=== PATIENT | female | born 1980 | race African-American/Black ===

== ENCOUNTER 2017-01-25 00:15 | Emergency (ER) | payer OTHER ==
[~2017-01-25] VITALS: Ht 167.6 cm; Wt 63.5 kg
[~2017-01-25 00:15] MED LIST: ACETAMINOPHEN-1 EAC1; ACETAMINOPHEN-1 EAC1 PO; ACETAMINOPHEN325 M1 PO; ACETAMINOPHEN650 M5 PO; ADULT LOW DOSE81 MG PO; ALEVE220 MG PO; AUGMENTIN 875875 M1 PO; AZITHROMYCIN 2250 MG PO; CARISOPRODOL 3350 MG PO; COLACE 100 MG100 MG PO; COLACE100 MG PO; CYCLOBENZAPRINE10 MG PO; DEEP SEA NASAL44 M1 NASAL; DESYREL PO; DESYREL150 MG PO; DIFLUCAN150 MG PO; DIPHENHIST50 MG PO; DIPHENHYDRAMINE25 M3 PO; ENEMA133 ML PO; FLEXERIL PO; FOLIC ACID0.4 MG PO; FOLIC ACID1 MG; FOLIC ACID1 MG PO; IBUPROFEN 600600 M1 PO; LEVAQUIN PO; MACROBID 100 M100 M1 PO; MEDROLDOSEPACK PO; MINERAL OIL HEAV1 ML PO; MIRALAX255 GM PO; MORPHINE SULFAT15 M3 PO; MORPHINE SULFAT30 M1 PO; MOTRIN 600 MG PO; MS CONTIN 100100 MG PO; MULTIVITAMINS PO; NEURONTIN 300300 M1 PO; NORCO 5-325 TA1 EACH PO; OXYCODONE PO; OXYCONTIN PO; PEPTO-BISMOL262 M1 PO; PERCOCET 5-3251 EACH PO; PREDNISOLONE ACETATE 1% OP; PRENATAL MULTI1 EAC2 PO; PROMETHAZINE12.5 M1 PO; PYRIDOXINE HCL100 MG PO; RESTASIS1 EACH OP; SENNA-LAX8.6 MG PO; TRAZODONE 150150 M1 PO; TRINATE TABLET1 TAB PO; TYLENOL 3; TYLENOL325 MG PO; ZOFRAN 4 MG ORAL4 M1 DIS; [UNRECOGNIZED DRUG - CODE] PO
[2017-01-25 01:02] LABS: ABSOLUTE RETIC COUNT 0.3634 10^6/uL; HEMATOCRIT 20.7 % (37.0-47.0); HEMOGLOBIN 7.4 gm/dL (12.0-15.0); MCH 34.1 pg (26.0-34.0); MCHC 35.5 g/dL (28.0-37.0); MCV 96.2 fL (80.0-100.0); OBSERVED RETIC COUNT 16.85 % (0.6-2.6); PLATELET COUNT 435 thou/uL (150-400); RBC 2.16 mil/uL (4.20-5.00); RDW 20.9 % (10.5-14.5); WBC 9.7 thou/uL (4.0-11.0)
[2017-01-25 01:03] LABS: MANUAL DIFF YES
[2017-01-25 01:07] LABS: CALCIUM 8.4 mg/dL (8.5-10.1); CREATININE 0.6 mg/dL (0.6-1.0); POTASSIUM 3.6 mmol/L (3.5-5.1)
[2017-01-25 04:16] LABS: ABSOLUTE NEUTROPHILS 5.3 thou/uL (1.4-8.2); ANISOCYTOSIS 3+; MYELOCYTES 1 %; NUCLEATED RBCS 8 /100WBC; TOTAL CELL COUNT 100
[2017-01-25 04:17] LABS: HOWELL-JOLLY BODIES RARE; MACROCYTES 1+; POIKILOCYTOSIS 2+; POLYCHROMASIA 1+
[2017-01-25 04:18] LABS: LARGE PLATELETS OCCASIONAL
== END 2017-01-25 03:06 | disposition home or self-care (01) ==
LOC: ER 00:15
PROVIDERS: Emergency Medicine
DX: D57.00 Hb-SS disease with crisis, unspecified (principal); M54.9 Dorsalgia, unspecified; M79.605 Pain in left leg; M79.604 Pain in right leg; Z86.2 Personal history of diseases of the blood and blood-forming organs and certain disorders involving the immune mechanism; Z90.49 Acquired absence of other specified parts of digestive tract; G89.4 Chronic pain syndrome

== ENCOUNTER 2017-02-28 08:26 | Emergency (ER) | payer OTHER ==
[~2017-02-28] VITALS: Ht 167.6 cm; Wt 61.2 kg
== END 2017-02-28 10:48 | disposition home or self-care (01) ==
LOC: ER 08:26
DX: D57.1 Sickle-cell disease without crisis (principal); G89.4 Chronic pain syndrome; Z90.81 Acquired absence of spleen; Z45.2 Encounter for adjustment and management of vascular access device

== ENCOUNTER 2017-03-10 18:00 | Inpatient (IN) | payer OTHER ==
[~2017-03-10] VITALS: Ht 162.6 cm; Wt 62.7 kg
[2017-03-10 18:51] LABS: HEMATOCRIT 22.4 % (37.0-47.0); HEMOGLOBIN 7.9 gm/dL (12.0-15.0); MANUAL DIFF YES; MCH 35.4 pg (26.0-34.0); MCHC 35.2 g/dL (28.0-37.0); MCV 100.5 fL (80.0-100.0); PLATELET COUNT 487 thou/uL (150-400); RBC 2.23 mil/uL (4.20-5.00); RDW 24.5 % (10.5-14.5); WBC 11.7 thou/uL (4.0-11.0)
[2017-03-10 19:08] LABS: CALCIUM 8.4 mg/dL (8.5-10.1); CREATININE 0.6 mg/dL (0.6-1.0); POTASSIUM 3.7 mmol/L (3.5-5.1)
[2017-03-10 19:16] LABS: ABSOLUTE NEUTROPHILS 6.6 thou/uL (1.4-8.2); NUCLEATED RBCS 17 /100WBC; TOTAL CELL COUNT 100
[2017-03-10 19:17] LABS: ANISOCYTOSIS 4+; MICROCYTES 3+; POLYCHROMASIA 2+; TARGET CELLS 1+
[2017-03-10 19:18] LABS: OTHER MORPHOLOGY SICKLE CELLS
[2017-03-10 19:19] LABS: POIKILOCYTOSIS 4+
[2017-03-10 21:28] LABS: ABSOLUTE RETIC COUNT 0.5151 10^6/uL; OBSERVED RETIC COUNT 23.1 % (0.6-2.6)
[2017-03-10 22:00] VITALS: BP 147/90
[2017-03-10 23:00] VITALS: BP 126/44
[2017-03-10 23:44] LABS: CALCIUM 8.1 mg/dL (8.5-10.1); CREATININE 0.5 mg/dL (0.6-1.0); POTASSIUM 3.5 mmol/L (3.5-5.1)
[2017-03-11 00:51] VITALS: BP 111/61
[2017-03-11 03:35] VITALS: BP 127/60
[2017-03-11 05:23] LABS: WBC 10.2 thou/uL (4.0-11.0)
[2017-03-11 05:27] LABS: MCHC 35.1 g/dL (28.0-37.0); MCV 99.6 fL (80.0-100.0); RBC 1.99 mil/uL (4.20-5.00); RDW 23.8 % (10.5-14.5)
[2017-03-11 05:47] LABS: HEMATOCRIT 19.8 % (37.0-47.0)
[2017-03-11 07:50] VITALS: BP 133/86
[2017-03-11 15:45] VITALS: BP 112/82
[2017-03-11 20:00] VITALS: BP 127/66
[2017-03-12 03:42] VITALS: BP 101/48
[2017-03-12 03:58] LABS: ABSOLUTE NEUTROPHILS 6.3 thou/uL (1.4-8.2); BASOPHILS 0.5 % (0.0-2.0); EOSINOPHILS 3.9 % (0.0-3.0); HEMATOCRIT 21.4 % (37.0-47.0); HEMOGLOBIN 7.4 gm/dL (12.0-15.0); MCH 34.8 pg (26.0-34.0); MCHC 34.4 g/dL (28.0-37.0); MCV 101.1 fL (80.0-100.0); MONOCYTES 10.7 % (1.0-8.0); PLATELET COUNT 444 thou/uL (150-400); POLYS 59.9 % (36.0-66.0); RBC 2.11 mil/uL (4.20-5.00); RDW 23.1 % (10.5-14.5); WBC 11.5 thou/uL (4.0-11.0)
[2017-03-12 04:02] LABS: CALCIUM 8.5 mg/dL (8.5-10.1); CREATININE 0.6 mg/dL (0.6-1.0)
[2017-03-12 04:05] LABS: MANUAL DIFF NO
[2017-03-12 07:42] VITALS: BP 121/77
[2017-03-12 16:03] VITALS: BP 136/80
[2017-03-12 18:57] VITALS: BP 129/69
[2017-03-13 03:25] VITALS: BP 97/47
[2017-03-13 08:40] VITALS: BP 106/62
[2017-03-13 19:10] VITALS: BP 120/54
[2017-03-14 03:56] VITALS: BP 109/52
[2017-03-14 05:17] LABS: MCV 99.1 fL (80.0-100.0)
[2017-03-14 05:20] LABS: MCHC 34.3 g/dL (28.0-37.0); RBC 1.86 mil/uL (4.20-5.00); WBC 11.6 thou/uL (4.0-11.0)
[2017-03-14 05:31] LABS: HEMATOCRIT 18.4 % (37.0-47.0); HEMOGLOBIN 6.3 gm/dL (12.0-15.0)
[2017-03-14 05:42] LABS: ALBUMIN 3.5 g/dL (3.4-5.0); CALCIUM 8.6 mg/dL (8.5-10.1); CREATININE 0.5 mg/dL (0.6-1.0); TOTAL BILIRUBIN 4.7 mg/dL (<0.1-1.0); TOTAL PROTEIN 6.8 g/dL (6.4-8.2)
[2017-03-14 07:07] VITALS: BP 98/41
[2017-03-14 15:05] VITALS: BP 119/48
[2017-03-14 19:56] VITALS: BP 132/52
[2017-03-15 07:10] VITALS: BP 103/46
[2017-03-15 15:30] VITALS: BP 121/61
[2017-03-15 19:22] VITALS: BP 123/66
[2017-03-16 04:20] VITALS: BP 110/49
[2017-03-16 04:23] LABS: MCH 33.5 pg (26.0-34.0); MCHC 34.7 g/dL (28.0-37.0); MCV 96.4 fL (80.0-100.0); RBC 1.87 mil/uL (4.20-5.00); WBC 14.2 thou/uL (4.0-11.0)
[2017-03-16 04:32] LABS: HEMOGLOBIN 6.2 gm/dL (12.0-15.0)
[2017-03-16 07:05] VITALS: BP 106/45
[2017-03-16] MEDS ORDERED: OXYCODONE HCL 55 MG PO (10:48)
[2017-03-16 11:02] VITALS: BP 106/45
[2017-03-16 11:52] LABS: URINE BILIRUBIN NEGATIVE (Negative); URINE BLOOD NEGATIVE (Negative); URINE COLOR YELLOW; URINE GLUCOSE-RANDOM* NEGATIVE (Negative); URINE KETONES NEGATIVE (Negative); URINE NITRITE NEGATIVE (Negative); URINE PROTEIN (DIPSTICK) NEGATIVE (Negative)
== END 2017-03-16 14:50 | disposition home or self-care (01) | DRG 812 ==
LOC: ER 18:00 → EROBS 21:17 → 5S 21:17
PROVIDERS: Emergency Medicine; Family Medicine; Hospitalist; Nurse Practitioner Family
DX: D57.00 Hb-SS disease with crisis, unspecified (principal); D64.9 Anemia, unspecified; Z96.643 Presence of artificial hip joint, bilateral; G89.4 Chronic pain syndrome; E86.0 Dehydration; Z90.81 Acquired absence of spleen; Z90.49 Acquired absence of other specified parts of digestive tract; Z86.711 Personal history of pulmonary embolism; Z86.718 Personal history of other venous thrombosis and embolism
CPT/HCPCS: 10785

== ENCOUNTER 2017-04-07 17:01 | Emergency (ER) | payer OTHER ==
[~2017-04-07] VITALS: Ht 167.6 cm; Wt 61.2 kg
--- NOTE | ~2017-04-07 | EKG ---
[place] [address] [address] [facility] [place] [address] ELECTROCARDIOGRAM REPORT Name: EDILZIASTEVE LYNCH [facility]: [facility] [id number] Admission: 04/07/17 Attend Phys: Discharge: 04/07/17 Date of : 80 Report #: [id number] THIS REPORT FOR: //name// [facility] ED Test Date: 2017-04-07 Test Time: 17:48:54 Pat Name: ZIA SOLO Department: Room: Gender: F Assistant Customer Service Manager: [id number] : 1980 Requested By: Darling Mcgregor Order Number: [id number] MD: Jean Prescott Measurements Intervals [place] Rate: 83 P: 43 OR: 191 QRS: 55 QRSD: 90 T: 30 QT: 373 QTc: 439 Interpretive Statements Sinus rhythm Consider left ventricular hypertrophy Compared to ECG 11/21/2014 14:20:12 No significant changes Electronically Signed On 04-07-2017 23:06:43 CDT by Jean Prescott [email or web address] <ELECTRONICALLY SIGNED> By: Jean Prescott MD 04/07/17 [id number] 1748 Jean Prescott MD /SHIRLENE
[~2017-04-07 17:01] MED LIST changes: +OXYCODONE HCL 55 MG PO
[2017-04-07] MEDS ORDERED: MSL20MG/ML PO (18:23)
[2017-04-07] MEDS ORDERED: AMITRIPTYLINE H25 M3 PO (18:24)
[2017-04-07 18:35] LABS: ABSOLUTE NEUTROPHILS 7.2 thou/uL (1.4-8.2); BASOPHILS 0.4 % (0.0-2.0); EOSINOPHILS 0.8 % (0.0-3.0); HEMOGLOBIN 8.8 gm/dL (12.0-15.0); LYMPHOCYTES 14.9 % (24.0-44.0); MCH 35.7 pg (26.0-34.0); MCHC 35.1 g/dL (28.0-37.0); MCV 101.5 fL (80.0-100.0); MONOCYTES 9.3 % (1.0-8.0); PLATELET COUNT 520 thou/uL (150-400); POLYS 74.6 % (36.0-66.0); RBC 2.46 mil/uL (4.20-5.00); RDW 22.8 % (10.5-14.5); WBC 10.5 thou/uL (4.0-11.0)
[2017-04-07 18:36] LABS: MANUAL DIFF NO
[2017-04-07 18:43] LABS: ANION GAP 6 mmol/L (7-16); BUN 9 mg/dL (7-18); CALCIUM 9.1 mg/dL (8.5-10.1); CHLORIDE 105 mmol/L (98-107); CO2 29 mmol/L (21-32); CREATININE 0.6 mg/dL (0.6-1.0); GLUCOSE 104 mg/dL (74-106); POTASSIUM 4.2 mmol/L (3.5-5.1); SODIUM 140 mmol/L (136-145)
[2017-04-07 18:47] LABS: ABSOLUTE RETIC COUNT 0.4755 10^6/uL; OBSERVED RETIC COUNT 18.8 % (0.6-2.6)
[2017-04-07 18:49] LABS: ALBUMIN 4.1 g/dL (3.4-5.0); ALKALINE PHOSPHATASE 69 U/L (46-116); SGOT 26 U/L (15-37); SGPT 24 U/L (30-65); TOTAL BILIRUBIN 5.6 mg/dL (<0.1-1.0); TOTAL PROTEIN 8.2 g/dL (6.4-8.2); TROPONIN-I < 0.04 ng/mL (<0.04-0.07)
== END 2017-04-07 21:51 | disposition home or self-care (01) ==
LOC: ER 17:01
PROVIDERS: Nurse Practitioner Family
DX: D57.1 Sickle-cell disease without crisis (principal); G89.29 Other chronic pain; F10.99 Alcohol use, unspecified with unspecified alcohol-induced disorder; Z96.643 Presence of artificial hip joint, bilateral; Z90.49 Acquired absence of other specified parts of digestive tract

== ENCOUNTER 2017-05-05 19:10 | Emergency (ER) | payer OTHER ==
[~2017-05-05] VITALS: Ht 167.6 cm; Wt 65.8 kg
[~2017-05-05 19:10] MED LIST changes: +AMITRIPTYLINE H25 M3 PO; +MSL20MG/ML PO
[2017-05-05 21:48] LABS: URINE BILIRUBIN NEGATIVE (Negative); URINE BLOOD NEGATIVE (Negative); URINE COLOR YELLOW; URINE GLUCOSE-RANDOM* NEGATIVE (Negative); URINE KETONES NEGATIVE (Negative); URINE LEUKOCYTES-REFLEX NEGATIVE (Negative); URINE PROTEIN (DIPSTICK) 1+ (Negative); URINE UROBILINOGEN 0.2 E.U./dl (0.2-1.0)
[2017-05-05 21:55] LABS: SQUAMOUS >10 Many /LPF (0-3)
[2017-05-05 21:56] LABS: HYALINE CASTS 0-3 Few /LPF (None Seen); URINE RBC 0-2 Rare /HPF (0-2); URINE WBC-REFLEX 6-15 Few /HPF (0-5)
[2017-05-05 21:57] LABS: CRYSTALS None Seen /LPF (None Seen); YEAST-REFLEX Present (None Seen)
== END 2017-05-05 23:12 | disposition home or self-care (01) ==
LOC: ER 19:10
PROVIDERS: Emergency Medicine
DX: D57.00 Hb-SS disease with crisis, unspecified (principal); G89.29 Other chronic pain; Z96.641 Presence of right artificial hip joint; Z96.642 Presence of left artificial hip joint; Z90.49 Acquired absence of other specified parts of digestive tract

== ENCOUNTER 2017-05-13 21:24 | Emergency (ER) | payer OTHER ==
[~2017-05-13] VITALS: Ht 167.6 cm; Wt 63.5 kg
== END 2017-05-14 04:10 | disposition home or self-care (01) ==
LOC: ER 21:24
DX: D57.00 Hb-SS disease with crisis, unspecified (principal); Z96.643 Presence of artificial hip joint, bilateral; Z90.81 Acquired absence of spleen

== ENCOUNTER 2017-06-18 20:09 | Emergency (ER) | payer OTHER ==
[~2017-06-18] VITALS: Ht 167.6 cm; Wt 63.5 kg
[2017-06-18 21:44] LABS: HEMATOCRIT 22.1 % (37.0-47.0); HEMOGLOBIN 7.8 gm/dL (12.0-15.0); MCH 34.4 pg (26.0-34.0); MCHC 35.3 g/dL (28.0-37.0); MCV 97.7 fL (80.0-100.0); PLATELET COUNT 488 thou/uL (150-400); RBC 2.26 mil/uL (4.20-5.00); RDW 22.9 % (10.5-14.5); WBC 11.9 thou/uL (4.0-11.0)
[2017-06-18 21:45] LABS: MANUAL DIFF YES
[2017-06-18 21:59] LABS: CALCIUM 9.2 mg/dL (8.5-10.1); CREATININE 0.6 mg/dL (0.6-1.0); POTASSIUM 4.2 mmol/L (3.5-5.1)
[2017-06-18 22:12] LABS: ABSOLUTE NEUTROPHILS 9.2 thou/uL (1.4-8.2); NUCLEATED RBCS 4 /100WBC; TOTAL CELL COUNT 100
[2017-06-18 22:13] LABS: HOWELL-JOLLY BODIES OCCASIONAL; MACROCYTES 1+; POLYCHROMASIA OCCASIONAL; TARGET CELLS 1+
== END 2017-06-19 00:48 | disposition home or self-care (01) ==
LOC: ER 20:09
PROVIDERS: Physician Assistant
DX: D57.00 Hb-SS disease with crisis, unspecified (principal); Z96.643 Presence of artificial hip joint, bilateral; Z90.49 Acquired absence of other specified parts of digestive tract; G89.29 Other chronic pain; Z86.711 Personal history of pulmonary embolism; Z86.718 Personal history of other venous thrombosis and embolism

== ENCOUNTER 2017-07-10 16:23 | Emergency (ER) | payer OTHER ==
[~2017-07-10] VITALS: Ht 165.1 cm; Wt 56.7 kg
[2017-07-10 17:13] LABS: HEMATOCRIT 22.4 % (37.0-47.0); HEMOGLOBIN 7.8 gm/dL (12.0-15.0); MCH 33.5 pg (26.0-34.0); MCV 95.5 fL (80.0-100.0); PLATELET COUNT 420 thou/uL (150-400); RBC 2.34 mil/uL (4.20-5.00); RDW 19.6 % (10.5-14.5); WBC 15.5 thou/uL (4.0-11.0)
[2017-07-10 17:15] LABS: MANUAL DIFF YES
[2017-07-10 17:25] LABS: CALCIUM 8.8 mg/dL (8.5-10.1); CREATININE 0.8 mg/dL (0.6-1.0); POTASSIUM 3.4 mmol/L (3.5-5.1)
[2017-07-10 17:35] LABS: ABSOLUTE NEUTROPHILS 13.2 thou/uL (1.4-8.2); NUCLEATED RBCS 2 /100WBC; TOTAL CELL COUNT 100
[2017-07-10 17:36] LABS: ANISOCYTOSIS 3+; POLYCHROMASIA 2+
[2017-07-10 17:37] LABS: TARGET CELLS OCCASIONAL
== END 2017-07-10 20:53 | disposition home or self-care (01) ==
LOC: ER 16:23
PROVIDERS: Emergency Medicine
DX: D57.1 Sickle-cell disease without crisis (principal); G89.29 Other chronic pain; Z90.81 Acquired absence of spleen; Z96.643 Presence of artificial hip joint, bilateral

== ENCOUNTER 2017-11-11 00:15 | Emergency (ER) | payer OTHER ==
[~2017-11-11] VITALS: Ht 167.6 cm; Wt 63.5 kg
[2017-11-11 01:23] LABS: ABSOLUTE RETIC COUNT 0.3273 10^6/uL; OBSERVED RETIC COUNT 14.85 % (0.6-2.6)
[2017-11-11 01:28] LABS: CALCIUM 8.7 mg/dL (8.5-10.1); CREATININE 0.6 mg/dL (0.6-1.0); POTASSIUM 4.1 mmol/L (3.5-5.1)
[2017-11-11 01:32] LABS: HEMATOCRIT 21.3 % (37.0-47.0); HEMOGLOBIN 7.3 gm/dL (12.0-15.0); MCH 32.9 pg (26.0-34.0); MCHC 34.1 % (28.0-37.0); MCV 96.5 fL (80.0-100.0); PLATELET COUNT 453 thou/uL (150-400); RDW 21.5 % (10.5-14.5); WBC 10.6 thou/uL (4.0-11.0)
[2017-11-11 02:01] LABS: ABSOLUTE NEUTROPHILS 6.9 thou/uL (1.4-8.2); ANISOCYTOSIS 2+; HOWELL-JOLLY BODIES RARE; LARGE PLATELETS RARE; NUCLEATED RBCS 5 /100WBC; POIKILOCYTOSIS 2+; POLYCHROMASIA OCCASIONAL
[2017-11-11 03:40] VITALS: BP 131/75
== END 2017-11-11 02:45 | disposition home or self-care (01) ==
LOC: ER 00:15
PROVIDERS: Emergency Medicine
DX: D57.00 Hb-SS disease with crisis, unspecified (principal); Z96.643 Presence of artificial hip joint, bilateral

== ENCOUNTER 2018-02-22 20:28 | Emergency (ER) | payer OTHER ==
[~2018-02-22] VITALS: Ht 167.6 cm; Wt 63.5 kg
--- NOTE | ~2018-02-22 | EKG ---
[address] [place] [address] ELECTROCARDIOGRAM REPORT Name: ZIA SOLO CRIS [facility] [id number] Admission: 02/22/18 Attend Phys: Discharge: 02/23/18 Date of : 80 Report #: [id number] THIS REPORT FOR: //name// [facility] ED Test Date: 2018-02-22 Test Time: 21:26:49 Pat Name: ZIA SOLO Department: Room: Gender: F Kitchen Work Supervisor: ANGIE : 1980 Requested By: Mandy Rojo Order Number: [id number] MD: Terry Merrill Measurements Intervals [place] Rate: 90 P: 64 MD: 175 QRS: 69 QRSD: 98 T: 24 QT: 357 QTc: 437 Interpretive Statements Sinus rhythm Probable left ventricular hypertrophy Compared to ECG 07/23/2017 20:32:57 No significant changes Electronically Signed On 02-23-2018 8:11:36 CDT by Terry Merrill [email or web address] <ELECTRONICALLY SIGNED> By: Terry Merrill MD, [facility] 02/23/18 0811 2126 25 Terry Merrill MD, FACC /EPI
[2018-02-22 22:51] LABS: ABSOLUTE NEUTROPHILS 12.4 thou/uL (1.4-8.2); BASOPHILS 0.3 % (0.0-2.0); EOSINOPHILS 2.1 % (0.0-3.0); HEMATOCRIT 22.2 % (37.0-47.0); HEMOGLOBIN 7.7 gm/dL (12.0-15.0); LYMPHOCYTES 16.4 % (24.0-44.0); MCH 33.6 pg (26.0-34.0); MCHC 34.8 g/dL (28.0-37.0); MCV 96.7 fL (80.0-100.0); MONOCYTES 10.4 % (1.0-8.0); PLATELET COUNT 412 thou/uL (150-400); POLYS 70.8 % (36.0-66.0); RBC 2.29 mil/uL (4.20-5.00); RDW 22.5 % (10.5-14.5); WBC 17.5 thou/uL (4.0-11.0)
[2018-02-22 22:59] LABS: ABSOLUTE RETIC COUNT 0.3578 10^6/uL; OBSERVED RETIC COUNT 15.48 % (0.6-2.6)
[2018-02-22 23:25] LABS: URINE BILIRUBIN NEGATIVE (Negative); URINE BLOOD NEGATIVE (Negative); URINE CLARITY CLEAR; URINE COLOR YELLOW; URINE GLUCOSE-RANDOM* NEGATIVE (Negative); URINE KETONES NEGATIVE (Negative); URINE LEUKOCYTES-REFLEX NEGATIVE (Negative); URINE NITRITE-REFLEX NEGATIVE (Negative); URINE PROTEIN (DIPSTICK) NEGATIVE (Negative)
[2018-02-22 23:47] LABS: ANION GAP 6 mmol/L (7-16); BUN 12 mg/dL (7-18); CALCIUM 8.9 mg/dL (8.5-10.1); CHLORIDE 106 mmol/L (98-107); CO2 26 mmol/L (21-32); CREATININE 0.6 mg/dL (0.6-1.0); SODIUM 138 mmol/L (136-145)
[2018-02-22 23:51] LABS: ALBUMIN 3.8 g/dL (3.4-5.0); GLUCOSE 112 mg/dL (74-106); LIPASE 96 U/L (73-393); SGOT 25 U/L (15-37); SGPT 21 U/L (30-65)
[2018-02-23 00:04] LABS: TROPONIN-I < 0.04 ng/mL (<0.06)
[2018-02-23 00:06] LABS: TOTAL PROTEIN 7.7 g/dL (6.4-8.2)
[2018-02-23 00:17] LABS: ANISOCYTOSIS 3+; HYPOCHROMASIA 1+; POLYCHROMASIA 2+
== END 2018-02-23 02:00 | disposition home or self-care (01) ==
LOC: ER 20:28
PROVIDERS: Physician Assistant
DX: D57.1 Sickle-cell disease without crisis (principal); R10.84 Generalized abdominal pain

== ENCOUNTER 2019-01-29 14:02 | Emergency (ER) | payer OTHER ==
[~2019-01-29] VITALS: Ht 167.6 cm; Wt 63.5 kg
[2019-01-29 14:07] VITALS: BP 112/55
[2019-01-29 15:20] LABS: ABSOLUTE RETIC COUNT 0.4218 10^6/uL; HEMATOCRIT 20.7 % (37.0-47.0); HEMOGLOBIN 7.3 gm/dL (12.0-15.0); MCH 33.2 pg (26.0-34.0); MCHC 35.2 g/dL (28.0-37.0); MCV 94.2 fL (80.0-100.0); OBSERVED RETIC COUNT 19.16 % (0.6-2.6); PLATELET COUNT 466 thou/uL (150-400); RDW 24.1 % (10.5-14.5); WBC 14.8 thou/uL (4.0-11.0)
[2019-01-29 15:22] LABS: CALCIUM 8.7 mg/dL (8.5-10.1); CREATININE 0.8 mg/dL (0.6-1.0); POTASSIUM 4.1 mmol/L (3.5-5.1)
[2019-01-29 15:49] LABS: ABSOLUTE NEUTROPHILS 9.2 thou/uL (1.4-8.2); NUCLEATED RBCS 3 /100WBC
[2019-01-29 15:52] LABS: ANISOCYTOSIS 1+
[2019-01-29 15:53] LABS: MACROCYTES 1+
[2019-01-29 16:18] LABS: URINE BILIRUBIN NEGATIVE (Negative); URINE BLOOD 1+ (Negative); URINE COLOR YELLOW; URINE GLUCOSE-RANDOM* NEGATIVE (Negative); URINE KETONES NEGATIVE (Negative); URINE PROTEIN (DIPSTICK) NEGATIVE (Negative); URINE UROBILINOGEN 0.2 E.U./dl (0.2-1.0)
[2019-01-29 16:20] LABS: URINE CLARITY CLOUDY; URINE LEUKOCYTES-REFLEX 3+ (Negative); URINE NITRITE-REFLEX POSITIVE (Negative)
[2019-01-29 16:25] LABS: ALBUMIN 3.5 g/dL (3.4-5.0); DIRECT BILIRUBIN 0.2 mg/dL (<0.1-0.3); TOTAL BILIRUBIN 6.5 mg/dL (<0.1-1.0)
[2019-01-29 16:27] LABS: TOTAL PROTEIN 7.3 g/dL (6.4-8.2)
[2019-01-29 16:29] LABS: BACTERIA-REFLEX >30 Many /HPF (None Seen); CASTS None Seen /LPF (None Seen); CRYSTALS None Seen /LPF (None Seen); SQUAMOUS 0-3 Few /LPF (0-3); URINE RBC 3-10 Few /HPF (0-2); URINE WBC-REFLEX >25 Many /HPF (0-5)
[2019-01-29] MEDS ORDERED: KEFLEX500 M1 PO (17:02)
== END 2019-01-29 18:15 | disposition home or self-care (01) ==
LOC: ER 14:02
PROVIDERS: Student in an Organized Health Care Education/Training Program
DX: D57.00 Hb-SS disease with crisis, unspecified (principal); N39.0 Urinary tract infection, site not specified; Z90.49 Acquired absence of other specified parts of digestive tract; Z96.643 Presence of artificial hip joint, bilateral